=== PATIENT | female | born 1945 | race Caucasian/White ===

== ENCOUNTER → 2020-07-27 | Outpatient (CLI) | payer BC ==
--- NOTE | 2020-07-27 18:03 | KCIC ---
EXAMINATION: XR LUMBAR SPINE 2-3V CLINICAL HISTORY: Low back pain, Lt hip pain. Previous surgery 20 yrs. ago. TECHNIQUE: XR LUMBAR SPINE 2-3V Number of Images/Views: 3 COMPARISON: None FINDINGS: Normal anatomic alignment. No evidence of acute fracture or spondylolisthesis. Multilevel degenerativ e disc disease, moderate to severe at L5-S1 and mild at the remaining levels. Multilevel facet arthro destiney, greatest in the lower lumbar spine. Surgical clips in the lower abdomen. Vascular calcificatio ns. IMPRESSION: Multilevel degenerative disc disease and facet arthropathy, greatest at L5-S1. Electronically signed by: Clinton Dumont DO (07/27/2020 6:01 PM) [id number]
== END ==
LOC: KCIC 11:36
PROVIDERS: ATTEND Family Medicine
DX: M47.817 Spondylosis without myelopathy or radiculopathy, lumbosacral region (principal); M51.37 Other intervertebral disc degeneration, lumbosacral region
CPT/HCPCS: 72100

== ENCOUNTER → 2021-07-16 | Day surgery (SDC) | payer BC ==
[~2021-07-16] VITALS: Ht 165.1 cm; Wt 76.5 kg
[~2021-07-16] MED LIST: ASCO500C PO; BUPIVACAINE-EPI 0.5% 30 ML VIAL KIT. ONE; DEXAMETHASONE SOD PHOS 4 MG/ML VIAL ONE; DICL20GE TP; DICL75TA PO; EPINEPHrine 1 MG/ML VIAL ONE; HYDR-2761 PO; HYDROcodone/APAP 5/325MG 1 TAB TABLET PO ONE; HYDROmorphone 2 MG/ML INJ. IVP PRN; IV RINGERS,LACTATED 1000ML 1,000 ML IV SCH; LACT1CAP6 PO; LIDOCAINE 1% Multi-Dose 20 ML VIAL. INJ ONE; LIDOCAINE 1% PF 30 ML VIAL. ONE; LIDOCAINE 2% PF 5 ML VIAL. ONE; MORPHINE SULFATE 2 MG/ML INJ. IVP PRN; MULT-496 PO; ONDANSETRON PF 4 MG/2 ML VIAL. ONE; PROCHLORPERAZINE 10 MG/2 ML VIAL. IVP PRN; PROPOFOL 10 MG/ML (20ML) VIAL. IV ONE; SURGICEL HEMOSTAT 4X8 EACH. ONE; ceFAZolin SODIUM IV Push 1 GM VIAL. IVP PRN; ePHEDrine PF IN SALINE 50 MG/10 ML SYRINGE. IV ONE; fentaNYL PF VIAL 100 MCG/2 ML VIAL IVP PRN; fentaNYL PF VIAL 100 MCG/2 ML VIAL ONE
[2021-07-16 08:34] VITALS: BP 195/93
--- NOTE | 2021-07-16 16:43 | PDOC1 ---
History and Physical Date of Admission Date of Admission DATE: 07/16/21 TIME: 16:41 History of Present Illness History of Present Illness The patient is a 75-year-old female who recently underwent a core needle biopsy for an enlarging 2 cm lobulated nodule in the right breast. The biopsy results showed an intraductal papilloma. She was referred for consideration of surgical excision given these pathologic findings. Past Medical History Past Medical History Hypercholesterolemia Past Surgical History Past Surgical History Open cholecystectomy, colon surgery, hysterectomy, multiple spinal surgeries, appendectomy Social History Smoke: 1 pack per day ALCOHOL: none Current Medications Current Medications Current Medications Cefazolin Sodium (Ancef) 1 gm 1X PREOP PRN IVP PRIOR TO PROCEDURE; Start 07/16/21 at 06:00; Stop 07/16/21 at 18:00 Lidocaine HCl (Lidocaine 1% 20ml Vial) 20 ml 1X ONCE INJ ; Start 07/16/21 at 01:00; Stop 07/16/21 at 01:01; Status DC Lidocaine HCl (Xylocaine 1% Pf 30ml Vial) 30 ml STK-MED ONCE .ROUTE ; Start 07/16/21 at 16:22; Stop 07/16/21 at 16:22; Status DC Cellulose (Surgicel Hemostat 4x8) 1 each STK-MED ONCE .ROUTE ; Start 07/16/21 at 16:22; Stop 07/16/21 at 16:22; Status DC Epinephrine HCl (Adrenalin) 1 mg STK-MED ONCE .ROUTE ; Start 07/16/21 at 16:22; Stop 07/16/21 at 16:22; Status DC Bupivacaine HCl/ Epinephrine Bitart (Sensorcain-Epi 0.5% Kit) 30 ml STK-MED ONCE .ROUTE ; Start 07/16/21 at 16:34; Stop 07/16/21 at 16:35; Status DC Active Scripts Active Reported Voltaren Arthritis Pain (Diclofenac Sodium) 20 Gm Gel..gram. 20 Gm TP QIDPRN PRN Probiotic (Lactobacillus Acidophilus) 1 Each Capsule 1 Cap PO DAILY 10 Days Vitamin C (Ascorbic Acid) 500 Mg Capsule.er 1 Cap PO DAILY 30 Days Daily Value (Multivitamin) 1 Each Tablet 1 Tab PO DAILY 30 Days Diclofenac Sodium 75 Mg Tablet.dr 1 Tab PO DAILY PRN Allergies Allergies: Coded Allergies: No Known Drug Allergies (Unverified , 2/21/22) ROS General: No: Chills, Night Sweats, Fatigue, Malaise, Appetite, Other PSYCHOLOGICAL ROS: No: Anxiety, Behavioral Disorder, Concentration difficultie, Decreased libido, Depression, Disorientation, Hallucinations, Hostility, Irrit ablity, Memory difficulties, Mood Swings, Obsessive thoughts, Physical abuse, Sexual abuse, Sleep disturbances, Suicidal ideation, Other Eyes: No Blurry vision, No Decreased vision, No Double vision, No Dry eyes, No Excessive tearing, No Eye Pain, No Itchy Eyes, No Loss of vision, No Photophobia, No Scotomata, No Uses contacts, No Uses glasses, No Other HEENT: No: Heacaches, Visual Changes, Hearing change, Nasal congestion, Nasal discharge, Oral lesions, Sinus pain, Sore Throat, Epistaxis, Sneezing, Snoring, Tinnitus, Vertigo, Vocal changes, Other ALLERGY AND IMMUNOLOGY: No: Hives, Insect Bite Sensitivity, Itchy/Watery Eyes, Nasal Congestion, Post Nasal Drip, Seasonal Allergies, Other Hematological and Lymphatic: No: Bleeding Problems, Blood Clots, Blood Transfusions, Brusing, Night Sweats, Pallor, Swollen Lymph Nodes, Other ENDOCRINE: No: Breast Changes, Galactorrhea, Hair Pattern Changes, Hot Flashes, Malaise/lethargy, Mood Swings, Palpitations, Polydipsia/polyuria, Skin Changes, Temperature Intolerance, Unexpected Weight Changes, Other Respiratory: No: Cough, Hemoptysis, Orthopnea, Pleuritic Pain, Shortness of breath, SOB with excertion, Sputum Changes, Stridor, Tachypnea, Wheezing, Other Cardiovascular: No Chest Pain, No Palpitations, No Orthopnea, No Paroxysmal Noc. Dyspnea, No Edema, No Lt Headedness, No Other Gastrointestinal: No Nausea, No Vomiting, No Abdominal Pain, No Diarrhea, No Constipation, No Melena, No Hematochezia, No Other Genitourinary: No Dysuria, No Frequency, No Incontinence, No Hematuria, No Retention, No Discharge, No Urgency, No Pain, No Flank Pain, No Other, No , No , No , No , No , No , No Musculoskeletal: No Gait Disturbance, No Joint Pain, No Joint Stiffness, No Joint Swelling, No Muscle Pain, No Muscular Weakness, No Pain In:, No Swelling In:, No Other Neurological: No Behavorial Changes, No Bowel/Bladder ControlChng, No Confusion, No Dizziness, No Gait Disturbance, No Headaches, No Impaired Coord/balance, No Memory Loss, No Numbness/Tingling, No Seizures, No Speech Problems, No Tremors, No Visual Changes, No Weakness, No Other Skin: No Dry Skin, No Eczema, No Hair Changes, No Lumps, No Mole Changes, No Mottling, No Nail Changes, No Pruritus, No Rash, No Skin Lesion Changes, No Other, No Acne Physical Exam General: Alert, Oriented X3, Cooperative HEENT: Atraumatic Lungs: Clear to auscultation Heart: S1S2 Breasts: Normal Abdomen: Soft Extremities: No clubbing, No cyanosis Skin: No rashes Neuro: Normal speech Vitals Vitals Vital Signs Date Time Temp Pulse Resp B/P (MAP) Pulse Ox O2 Delivery O2 Flow Rate FiO2 07/16/21 08:39 97.9 80 18 195/93 96 Room Air 97.9 Labs Labs Laboratory Tests Test 07/16/21 08:25 POC SARS CoV-2 Antigen Negative (NEGATIVE) Laboratory Tests Test 07/16/21 08:25 POC SARS CoV-2 Antigen Negative (NEGATIVE) VTE Prophylaxis Ordered VTE Prophylaxis Devices: No VTE Pharmacological Prophylaxi: No Assessment/Plan Assessment/Plan Right breast mass, intraductal papilloma noted on core needle biopsy; plan for wire-guided excision. The details and risks of surgery were discussed with the patient. She understands and would like to proceed Justifications for Admission Other Justification MARLA HANSON MD Jul 16, 2021 16:43
--- NOTE | 2021-07-16 17:32 | RAD ---
EXAM: Sonographic guided right breast needle-wire localization; right breast post localization mammog denise; right breast specimen radiograph. HISTORY: 75-year-old female presents for needle-wire localization of a recently biopsied mass within the subareolar aspect of the right breast for surgical excision. TECHNIQUE: The risks of the procedure were discussed with the patient and written and verbal consent was obtained. A timeout was performed. Sonographic imaging of the right breast was performed and the nodule concern containing a biopsy clip within the 9:00 retroareolar location was identified. This le joel is somewhat bilobed and elongated in configuration. The skin overlying this location was sterile ly prepped, draped and infiltrated with 1 percent lidocaine. A needle wire system was advanced into t he lesion and adjacent to the biopsy clip. The wire was deployed and secured to the skin surface. A p ost localization mammogram demonstrates the wire traversing the central aspect of the bilobed lesion. The wire is within 3 to 4 mm from the biopsy clip. A specimen radiograph demonstrates inclusion of the nodule and clustered calcifications as well as bi opsy clip. IMPRESSION: Sonographic guided wire localization of a nodule and biopsy clip within the 9:00 subareol ar aspect of the right breast and inclusion of the nodule, clustered calcifications and biopsy clip w ithin the surgical specimen. Electronically signed by: Saadia Cee MD (07/16/2021 5:30 PM) [id number]
--- NOTE | 2021-07-16 17:53 | PDOC4 ---
Operative Note Operative Note Operative Note: Preoperative Diagnosis: Right breast mass Postoperative Diagnosis: Same Procedure: Right breast biopsy with needle localization Surgeon: Marcio Gaming Surveillance Observer: SHAN Germain, Ronnie Bobo, MS 4 Anesthesia: General EBL: 10 mL Specimen: Right breast mass to pathology Drains: None Complications: None Indication: The patient is a 75-year-old female who recently underwent a core needle biopsy for mammographic abnormalities right breast. This identified an intraductal papilloma. She was referred for consideration of a wider surgical e xcision. The details and risks of surgery were discussed with the patient. The risks include bleeding, infection, pain, scar tissue, wound healing problems, potential need for additional surgery procedure. She understands and would like to proceed. Description: The patient was taken the operating room and placed supine on the operating table. General anesthesia was performed. The right breast was prepped with ChloraPrep and draped in a standard surgical manner. The wire was seen entering the lateral aspect close to the nipple. A periareolar incision was made at the 9:00 location with a scalpel. Cautery dissection was carried down into the breast parenchyma. The wire was identified and followed to its distal tip. A generous amount of breast tissue was mobilized using mostly cautery. The entire specimen was then fully excised and sent to radiology. Specimen radiograph confirmed the presence of the mass and the clip. Hemostasis was achieved with cautery. The subcutaneous tissue was approximated with 3-0 Vicryl. The skin was closed with 4 Monocryl and infiltrated with half percent Marcaine with epinephrine. Steri-Strips and a sterile dressing were applied. The patient tolerated the procedure well and was sent to the recovery room in stable condition. At the end the case all counts were correct MARLA HANSON MD Jul 16, 2021 17:53
--- NOTE | 2021-07-16 17:57 | DISCH ---
DISCHARGE INSTRUCTIONS Condition on Discharge Condition on Discharge: Stable Activity After Discharge Activity Instructions for Disc: Activity as tolerated Diet after Discharge Diet after Discharge: Regular Wound Incision Care Wound/Incision Care: Other, see below (keep dressing clean and dry X 72 hours, may then remove and shower) Follow-Up Follow up with: Dr Hanson in 2 weeks in office, call for appointment [phone] MARLA HANSON MD Jul 16, 2021 17:57
[2021-07-16 18:59] VITALS: BP 149/78
--- NOTE | 2021-07-19 17:09 | PATHOLOGY ---
[facility] Accession Number: [id number] . 01 Material submitted: . breast - RIGHT BREAST BIOPSY NEEDLE LOCALIZATION. Modifiers: right . 01 Clinical history: . RIGHT BREAST MASS RIGHT BREAST BIOPSY OBTAINED 530PM FORMALIN 550PM . 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 See comment. - Sclerotic intraductal papilloma with focal dystrophic calcification and with duct ectasia with focal intraductal hemorrhage. . (JPM:mml/tiffani/mml; 07/18/2021) [facility] 07/19/2021 1421 Local . 02 Comment: The localized lesion is a sclerotic intraductal papilloma with focal dystrophic calcification and duct ectasia with focal intraductal hemorrhage. The ductal papilloma is focally present at the inked margin of the biopsy. 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 This lesion only measures between 1 mm and 2 mm in greatest dimension. However, the lesion is less than 1 mm from the closest inked margin. . The case is also examined by Dr. Orquidea Perez, who concurs with the diagnosis. . (JPM:tiffani/mml; 07/19/2021) . 02 Electronically signed: . Octavio Dickerson MD, Pathologist NPI- [id number] . 01 Gross description: . Fixative: Formalin Labeled: Right breast biopsy needle localization Specimen received: An unoriented, right breast biopsy specimen with a protruding, localizing wire. Oriented: Unoriented Dimensions: 5.0 x 2.7 x 1.0 cm Weight: 7 g . The specimen was previously compressed and distorted. The specimen is entirely inked black. . Number of slices: 12 . Lesion: 2.1 x 0.9 x 0.8 cm Lesion appearance: Peck-white, focally hemorrhagic, indurated, well-defined, and irregularly shaped Lesion location: Slices 4-9 Lesion to margins: Abutting both side resection margins 1.2 cm from one end 1.8 cm from opposing end . Biopsy clip: Ribbon-shaped clip, slice 9, embedded in lesion Uninvolved breast parenchyma: Comprised of 95% yellow lobulated adipose tissue and 5% white fibrous tissue . The specimen is entirely submitted, sequentially, starting with the end closet to the lesion, as follows: A1: Slice 1, perpendicular A2: Slices 2 A3: Slice 3 A4: Slice 4 A5: Slice 5 A6: Slice 6 A7: Slice 7 A8: Slice 8 A9: Slice 9 A10: Slice 10 A11: Slice 11 A12: Slice 12, perpendicular . The specimen is removed from the patient at 1730 and placed in formalin at 1750 on 07/16/2021. The specimen is removed from formalin at 1950 on 07/17/2021. The specimen is in formalin for greater than 6 hours and less than 72 hours. (J; 07/17/2021) [facility] 07/19/2021 1608 Local . 02 Pathologist provided ICD-10: D24.1, N60.41, N64.59 . 02 CPT . 540221 Specimen Comment: A courtesy copy of this report has been sent to [phone], [phone] Specimen Comment: [id number] Specimen Comment: Report sent to / DR STEELE [facility]formed at: [facility] [address], [place] [id number] MD Herrera John MD Phone: [phone] [facility]formed [facility]: 02 [facility] [address] [place], [place] [id number] MD Octavio Dickerson MD Phone: [phone]
== END | disposition home or self-care (01) ==
LOC: SURG 08:02
PROVIDERS: ATTEND Surgery
DX: N63.10 Unspecified lump in the right breast, unspecified quadrant (principal); R92.8 Other abnormal and inconclusive findings on diagnostic imaging of breast; D24.1 Benign neoplasm of right breast; N60.41 Mammary duct ectasia of right breast; N64.59 Other signs and symptoms in breast; E78.00 Pure hypercholesterolemia, unspecified; M19.90 Unspecified osteoarthritis, unspecified site; Z90.49 Acquired absence of other specified parts of digestive tract; Z90.710 Acquired absence of both cervix and uterus; Z98.890 Other specified postprocedural states; Z79.899 Other long term (current) drug therapy; Z87.891 Personal history of nicotine dependence
CPT/HCPCS: 19125; 19285; 76098; 77065; A6254; A6258; C1819; J0690; J1100; J2405; J2704; J3010; J3490; J0171